=== PATIENT | male | born 1935 | race Caucasian/White ===

== ENCOUNTER 2017-05-09 12:56 | Inpatient (IN) ==
--- NOTE | 2017-05-09 13:49 | Emergency Department Note ---
Disposition Clinical Impression: Weakness, Falls frequently, Paresthesias with subjective weakness, Lightheadedness Disposition: Admitted As Inpatient Condition: Undetermined Referrals: NONE,PCP [Primary Care Provider] - Forms: ED Satisfaction Letter Time of Disposition: 16:17 Dizziness HPI - General Chief Complaint: ED Dizziness Stated Complaint: vision changes, memory loss, weakness Time Seen by Provider: 05/09/17 13:27 Source: patient, family Mode of arrival: ambulatory Limitations: no limitations Nursing Notes Reviewed: Yes Vital Signs Reviewed: Yes - History of Present Illness HPI Narrative: 81-year-old male arrives to [facility] emergency department with complaint of dizziness, recent falls, numbness of her left lower extremity. The patient states that over the past 4 days he has had episodes where he has felt dizzy and stumbled and fallen. The patient states that he felt very weak after when these episodes. He had no loss of consciousness after any fall. The patient states he feels as though his left lower extremity is numb and this is the reason was falling at times he feels as though he is dizzy and cannot stand up. The patient denied any chest pain, difficulty breathing, headache associated with it. The patient states he has intermittent episodes of blurred vision as well as dizziness as well. He denies any other complaints at this time is resting comfortably in the room. The patient states this all started roughly 4 days ago so we will not activate a stroke alert at this time. Pt Subjective Complaint: dizziness Onset (ago): day(s) (4) Timing: intermittent Description: off-balance, difficulty walking History of similar episodes: No History of trauma: No Severity: mild, moderate Improves with: nothing Worsens with: position Associated symptoms: Reports: weakness - Related Data Previous Rx's Medication Instructions Recorded Aspirin Enteric Coated [Aspirin EC] 81 mg PO DAILY #90 tablet. 06/26/15 Benzonatate [Tessalon] 200 mg PO BID PRN #30 capsule 06/26/15 Colesevelam HCl [Welchol] 1,875 mg PO BID #180 tablet 06/26/15 Insulin DETEMIR [Levemir] 14 unit SQ HS #5 [id number] 06/26/15 Insulin LISPRO [HumaLOG] 6 units SQ TIDWM #3 vial 06/26/15 Lisinopril [Zestril] 5 mg PO DAILY #90 tablet 06/26/15 Omeprazole [PriLOSEC] 20 mg PO DAILY #90 capsule 06/26/15 Acetaminophen w/Cod 300-30 mg 1 each PO Q6HR PRN #15 tablet 09/13/15 [Tylenol w/Codeine #3] Cyclobenzaprine [Flexeril] 10 mg PO BID PRN #15 tablet 10/15/15 HYDROcodone/Acet 5/325 mg [[place] 1 tab PO Q6H PRN #15 tab 10/15/15 5-325 mg] Allergies Allergy/AdvReac Type Severity Reaction Status Date / Time No Known Drug Allergies Allergy See Verified 02/05/15 15:12 Comments All systems ED: reviewed and negative except as stated. Constitutional: Reports: weakness. Denies: fever, chills ENT ED: Denies: congestion Cardiovascular: Denies: chest pain Respiratory: Denies: dyspnea Gastrointestinal: Denies: abdominal pain Genitourinary: Denies: urgency, dysuria Musculoskeletal: Denies: back pain, neck pain, arthralgia, myalgia Integumentary: Denies: rash Neurological: Reports: weakness, numbness, paresthesias, abnormal gait, vertigo. Denies: headache, confusion Past Medical History - Past Medical History Attestation: Yes The following information was validated with the patient. Source: patient Medical history: Reports: diabetes, hypertension, RA Surgical history: Reports: angioplasty/stent, cholecystectomy Psychiatric history: Reports: no psych history - Social History Smoking Status: Former smoker Smokeless Tobacco Status: No Alcohol use: Reports: occasionally Drug use: Reports: none Physical Exam HINTS exam concerning for normal finding in head jolt. - General Limitations: no limitations General appearance: alert, in no apparent distress - Head Head exam: atraumatic, normocephalic, normal inspection - Eye Eye exam: Present: normal appearance, PERRL, EOMI - ENT ENT exam: normal exam, normal oropharynx, mucous membranes moist - Neck Neck exam: Present: normal inspection, full ROM, trachea midline - Chest Chest inspection: Present: normal inspection, symmetric chest wall rise - Respiratory Respiratory exam: Present: normal lung sounds bilaterally - Cardiovascular Cardiovascular exam: Present: regular rate, normal rhythm, normal heart sounds - Abdominal Exam Abdominal exam: Present: soft, Non-Tender. Absent: tenderness, distention, guarding, rebound, rigidity - Extremities Exam Extremities exam: Present: normal inspection, full ROM. Absent: tenderness, pedal edema - Neurological Exam Neurological exam: Present: alert, oriented X3, CN II-XII intact - Expanded Neurological Exam Patient oriented to: Present: person, place, time Speech: Present: fluid speech Cranial nerves: EOM function (II, III, IV, ): Normal, facial sensation (V): Normal, facial palsy (VII): Normal Motor strength - LUE: 4/5 Motor strength - RUE: 4/5 Motor strength - LLE: 4/5 Motor strength - RLE: 4/5 Sensory exam upper extremity: light touch: Normal Sensory exam lower extremity: light touch: Abnormal Left Coma Scale Eye Opening: Spontaneous Coma Scale Motor Response: Obeys Commands Coma Scale Verbal Response: Oriented Coma Scale Total: 15 Course Vital Signs Temperature 97.9 F 05/09/17 13:19 Pulse Rate 99 05/09/17 13:19 Respiratory Rate 20 05/09/17 13:19 Blood Pressure 109/74 05/09/17 13:19 O2 Sat by Pulse Oximetry 95 05/09/17 13:19 Temperature 97.9 F 05/09/17 13:19 Pulse Rate 94 05/09/17 16:16 Respiratory Rate 18 05/09/17 16:16 Blood Pressure 116/80 05/09/17 16:16 O2 Sat by Pulse Oximetry 92 05/09/17 16:16 Oxygen Delivery Oxygen Delivery Room Air Dizziness - MDM Narrative Medical decision making narrative: Workup here in the emergency department demonstrates findings consistent with possible CVA. Head CT and neck CTA demonstrate no acute findings here today in the emergency department. With the patient's numerous falls and symptoms of right lower extremity numbness I am concerned about the patient going home at this time. We will admit the patient to the hospitalist for further care workup which will likely include MRI and Doppler. The patient will be admitted to the hospitalist service, accepted by Dr. Jorgensen. - Lab Data Lab results reviewed: Yes I reviewed the patient's lab results. Result diagrams: 05/09/17 13:58 05/09/17 13:58 Lab Results 05/09/17 05/09/17 05/09/17 Range/Units 13:58 13:58 13:58 WBC 9.0 (4.3-11.1) K/mcL RBC 4.33 (4.19-5.50) M/mcL Hgb 13.4 (12.9-16.9) g/dL Hct 39.6 (37.5-50.1) % MCV 91.5 (83.0-100.0) fL MCH 30.9 (28.0-33.3) pg MCHC 33.8 (31.6-35.5) g/dL RDW 13.3 (11.5-14.5) % Plt Count 167 (140-400) K/mcL MPV 11.3 (9.4-12.4) fL Immature Gran % 0.4 (0-4) % Seg Neutrophils % 70.8 % Lymphocytes % 16.3 % Monocytes % 10.7 % Eosinophils % 1.2 % Basophils % 0.6 % Neutrophils # 6.4 (1.6-8.9) K/mcL Lymphocytes # 1.5 (0.6-4.6) K/mcL Monocytes # 1.0 (0.0-1.3) K/mcL Eosinophils # 0.1 (0.0-0.6) K/mcL Basophils # 0.1 (0.0-0.2) K/mcL Immature Plt Fraction 8.6 H (1.1-6.1) % Sodium 134 L (136-145) mEq/L Potassium 4.5 (3.5-4.5) mEq/L Chloride 101 (98-109) mEq/L Carbon Dioxide 22 (19-29) mEq/L BUN 22 (8-26) mg/dL Creatinine 1.24 (0.72-1.25) mg/dL Est GFR ( Amer) > 60 (> 60) Est GFR (Non-Af Amer) 56 L (> 60) BUN/Creatinine Ratio 18 (6-26) Glucose 140 H (70-99) mg/dL Calculated Osmolality 284 (280-300) Calcium 9.7 (8.6-10.8) mg/dL Troponin I 0.02 (0-0.03) ng/mL Urine Color (Yellow) Urine Clarity (Clear) Urine pH (5.0-8.0) pH Units Ur Specific [place] (1.010-1.025) Urine Protein (Neg-Trace) mg/dL Urine Glucose (UA) (Normal) mg/dL Urine Ketones (Negative) mg/dL Urine Blood (Negative) Urine Nitrite (Negative) Urine Bilirubin (Negative) Urine Urobilinogen (Normal) mg/dL Ur Leukocyte Esterase (Negative) Urine Microscopic RBC (0-3) per hpf Urine Microscopic WBC (0-3) per hpf Ur Squamous Epith Cells (None-Few) per lpf Urine Bacteria (None-Few) per hpf Hyaline Casts (None-Few) per lpf Urine Mucus (Few) Ur Culture Indicated? (NO) 05/09/17 Range/Units 14:11 WBC (4.3-11.1) K/mcL RBC (4.19-5.50) M/mcL Hgb (12.9-16.9) g/dL Hct (37.5-50.1) % MCV (83.0-100.0) fL MCH (28.0-33.3) pg MCHC (31.6-35.5) g/dL RDW (11.5-14.5) % Plt Count (140-400) K/mcL MPV (9.4-12.4) fL Immature Gran % (0-4) % Seg Neutrophils % % Lymphocytes % % Monocytes % % Eosinophils % % Basophils % % Neutrophils # (1.6-8.9) K/mcL Lymphocytes # (0.6-4.6) K/mcL Monocytes # (0.0-1.3) K/mcL Eosinophils # (0.0-0.6) K/mcL Basophils # (0.0-0.2) K/mcL Immature Plt Fraction (1.1-6.1) % Sodium (136-145) mEq/L Potassium (3.5-4.5) mEq/L Chloride (98-109) mEq/L Carbon Dioxide (19-29) mEq/L BUN (8-26) mg/dL Creatinine (0.72-1.25) mg/dL Est GFR ( Amer) (> 60) Est GFR (Non-Af Amer) (> 60) BUN/Creatinine Ratio (6-26) Glucose (70-99) mg/dL Calculated Osmolality (280-300) Calcium (8.6-10.8) mg/dL Troponin I (0-0.03) ng/mL Urine Color Yellow (Yellow) Urine Clarity Clear (Clear) Urine pH 7.0 (5.0-8.0) pH Units Ur Specific [place] 1.014 (1.010-1.025) Urine Protein Trace (Neg-Trace) mg/dL Urine Glucose (UA) Normal (Normal) mg/dL Urine Ketones Negative (Negative) mg/dL Urine Blood Negative (Negative) Urine Nitrite Negative (Negative) Urine Bilirubin Negative (Negative) Urine Urobilinogen Normal (Normal) mg/dL Ur Leukocyte Esterase Negative (Negative) Urine Microscopic RBC 0-3 (0-3) per hpf Urine Microscopic WBC 0-3 (0-3) per hpf Ur Squamous Epith Cells Few (None-Few) per lpf Urine Bacteria Few (None-Few) per hpf Hyaline Casts None Seen (None-Few) per lpf Urine Mucus Few (Few) Ur Culture Indicated? NO (NO) - Radiology Data Radiology results reviewed: Yes I reviewed the patient's radiology results. - EKG Data EKG attestation: Yes I reviewed and interpreted this EKG. EKG results narrative: Heart rate 95 bpm. SD interval 167 ms. QTc 381 ms. Normal sinus rhythm. NO Elevation or ST depression noted. EKG similar to past EKG at 16. No acute changes noted. Attestation Statement - Attestation Attestation: I examined this patient and my medical decision-making was reviewed with the Resident Physician, Dr. Patricia. I agree with the documented findings, disposition and treatment plan as described except to the extent set forth below. Patient is an 81-year-old white male who presents to the emergency department with a 3 to four-week history of transient intermittent neurologic complaints. Patient states that he has been experiencing gradually worsening generalized weakness over that timeframe but also having episodes where he will develop left lower extremity paresthesias and subjective weakness becomes lightheaded and is told by family members that he has periods of stumbling with a can of hurry to his side to support him from falling. Patient has experienced a number of falls over the past 3-4 weeks but denies any head injuries, no loss of consciousness, denies taking anticoagulants or blood thinners, and no injuries related to the fall. Patient at this time denies any current dizziness lightheadedness symptoms of vertigo. He denies any headaches or visual changes, and currently denies any focal weakness or numbness. Patient's biggest concern is the gradual generalized weakness that he has noticed which is progressing over the past month. He denies any fevers or chills, no cough sore throat or upper respiratory symptoms, no chest pain pressure or heaviness, no shortness of breath or diaphoresis. He denies any urinary symptoms or flank pain and no abdominal pain. I agree with patient's physical exam findings as documented. Vital signs are stable on arrival. Patient is in no acute distress. Patient's EKG is unremarkable for any acute ischemia. Patient underwent chest x -ray imaging as well as CTA of head and neck. All imaging is unremarkable. Patient's neurologic exam is remained stable during his ED course as well as his vital signs. Symptoms concerning for TIA versus CVA like symptoms although nonacute. Feel patient would benefit from hospitalization and additional workup in this regard with neurologic consult. Patient will be admitted to the hospitalist service for further evaluation.
[2017-05-09 14:13] LABS: Basophils # 0.1 K/mcL (0.0-0.2); Basophils % 0.6 %; Eosinophils # 0.1 K/mcL (0.0-0.6); Eosinophils % 1.2 %; Hematocrit 39.6 % (37.5-50.1); Hemoglobin 13.4 g/dL (12.9-16.9); Immature Granulocytes % 0.4 % (0-4); Immature Platelets 8.6 % (1.1-6.1); Lymphocytes # 1.5 K/mcL (0.6-4.6); Lymphocytes % 16.3 %; Mean Corpuscular HGB Conc 33.8 g/dL (31.6-35.5); Mean Corpuscular Hemoglobin 30.9 pg (28.0-33.3); Mean Corpuscular Volume 91.5 fL (83.0-100.0); Mean Platelet Volume 11.3 fL (9.4-12.4); Monocytes % 10.7 %; Neutrophils # 6.4 K/mcL (1.6-8.9); Platelet Count 167 K/mcL (140-400); Red Blood Count 4.33 M/mcL (4.19-5.50); Red Cell Distribution Width 13.3 % (11.5-14.5); Segmented Neutrophils % 70.8 %
[2017-05-09 14:25] LABS: Bilirubin,Urine Negative (Negative); Blood,Urine Negative (Negative); Clarity,Urine Clear (Clear); Color,Urine Yellow (Yellow); Glucose,Urine (UA) Normal (Normal); Ketones,Urine Negative (Negative); Leukocyte Esterase,Urine Negative (Negative); Nitrite,Urine Negative (Negative); Protein,Urine Trace mg/dL (Neg-Trace); Specific Gravity,Urine 1.014 (1.010-1.025); Urobilinogen,Urine Normal (Normal)
[2017-05-09 14:27] LABS: Hyaline Casts,Urine None Seen per lpf (None-Few); RBC,Urine 0-3 per hpf (0-3); Squamous Epithelial Cell,Urine Few per lpf (None-Few); WBC,Urine 0-3 per hpf (0-3)
[2017-05-09 14:28] LABS: BUN/Creatinine Ratio 18 (6-26); Blood Urea Nitrogen 22 mg/dL (8-26); Calcium 9.7 mg/dL (8.6-10.8); Carbon Dioxide 22 mEq/L (19-29); Chloride 101 mEq/L (98-109); Glucose 140 mg/dL (70-99); Osmolality,Calculated 284 (280-300); Potassium 4.5 mEq/L (3.5-4.5); Sodium 134 mEq/L (136-145); eGFR For African Americans > 60 (> 60); eGFR For Non-African Americans 56 (> 60)
[2017-05-09 14:49] LABS: Mucus,Urine Few (Few)
[2017-05-09 14:50] LABS: Bacteria,Urine Few per hpf (None-Few)
[2017-05-09] MEDS ORDERED: Dextrose Gel 15 GM PO PRN ×4 (16:59→17:05)
[2017-05-09] MEDS ORDERED: D5% in Water 1,000 ML IVC PRN ×2 (16:59→17:05)
[2017-05-09] MEDS ORDERED: *HR* Dextrose 50 % in Water (Syg) 50 ML SYRINGE IVP PRN ×2 (16:59→17:05)
[2017-05-09] MEDS ORDERED: Naloxone 0.4 MG/ML INJ IVP PRN (16:59)
[2017-05-09] MEDS ORDERED: *HR* Metoprolol 5 MG/5 ML VIAL IVP PRN (17:09)
--- NOTE | 2017-05-09 17:19 | Internal Med History&Physical ---
<Anjum Tsai - Last Filed: 05/09/17 17:16> Date of Encounter: 05/09/17 Time of Encounter: 17:16 Assessment and Plan (1) CVA (cerebral vascular accident) Current visit: Yes Status: Suspected Right-sided weakness, reported falls on Wednesday hitting his head, dizziness, vision changes prior to follow, left lower extremity numbness, new shuffling gait Reporting new confusion. Upon my assessment the patient appears to have some expressive aphasia with word searching, and sensory deficits in the right upper and right lower extremity as well as right side of face. Continues to have weakness and He is having difficulty sitting upright in bed and continues to lean to the right. Otherwise no additional deficits. Heart is RRR, S1, S2 with no murmurs rubs or gallops. No prior history of CVA/TIA. Due to clinical presentation and ABCD score of 6 I highly suspect the patient has had a CVA, he will be admitted as inpatient for further workup and evaluation Consult neurology-spoke with Dr. Cristina who will see the patient tomorrow He agrees with the plan to start daily aspirin, simvastatin 80 mg, Plavix Additionally, he agrees with permissive hypertension for SBP up to 180 Metoprolol IV push every 6 hours when necessary for sustained SBP greater than 180 CTA of head and neck unremarkable-MRI in the morning Echocardiogram to rule out cardioembolic etiology PT/OT to assess functional capacity, health and social care teacher for potential rehabilitation placement, speech consult to assess for swallowing difficulty Remain nothing by mouth until speech eval CBC, BMP in the morning Continuous telemetry, continuous O2 monitoring Remain on bedrest until PT OT eval Qualifiers: CVA mechanism: unspecified Qualified Code(s): I63.9 - Cerebral infarction, unspecified (2) Weakness Current visit: Yes Status: Acute Continues to have right-sided weakness, highly suspect he has had a CVA, see plan above. (3) HTN (hypertension) Current visit: Yes Status: Acute History of hypertension. BP stable at this time. Allow for permissive hypertension following suspected stroke. Metoprolol every 6 hours IV push when necessary for sustained STP greater than 180 Qualifiers: Hypertension type: essential hypertension Qualified Code(s): I10 - Essential (primary) hypertension (4) Falls frequently Current visit: Yes Status: Acute History of frequent falls. As well and twice on Wednesday. PTOT to evaluate functional capacity and assess deficits. micrographics services supervisor on consult for potential rehabilitation placement (5) DVT prophylaxis Current visit: No Status: Acute Heparin 5000 units subcutaneous twice a day Internal Medicine - H&P: HPI Chief complaint: Weakness, frequent falls, vision changes, right-sided paresthesia Admitted From: Home Plans for Post Hospital Care: Home History of present illness: Mr. Hernandez is a 81 year old male with PMH of diabetes, HTN, rheumatoid arthritis. Presents today with weakness, vision changes, right-sided paresthesias and fslls which began on Wednesday. He reports that when he fell and struck the right side of his head. He is not on any blood thinners. No prior history of CVA or CAD. Denies any chest pain, shortness of breath, fevers, chills, abdominal pain, syncope, dysuria, flank pain. Only admitting to blurred vision and dizziness as well as some numbness and tingling in the left lower extremity. Doppler bedside and states that patient appears to be more confused and having difficulty with word finding. She reports that throughout this time he has not had any slurred speech or facial droop. She reports that he has difficulty sitting in upright position without leaning to the right side. CT angiogram of head and neck completed in ED and found to be negative. CBC, BMP, UA unremarkable. Due to continued right-sided neuro deficits high probability of CVA patient is being admitted for further workup and evaluation Past Med Surg Social Fam HX - Past Medical History Medical history: diabetes, hypertension, RA Psychiatric history: no psych history - Past Surgical History Surgical History: angioplasty/stent, cholecystectomy - Social History Smoking Status: Former smoker Smokeless Tobacco Status: No Alcohol use: occasionally Drug use: none - Family History Father Living Status: Hx Family Neuromuscular Disorders: Yes (strokes) Internal Medicine - H&P: Meds Aspirin 81 mg PO DAILY 05/09/17 [History] Insulin Glargine,Hum.rec.anlog [Lantus Solostar] 80 unit SQ HS 05/09/17 [History ] Insulin LISPRO [HumaLOG] 10 units SQ TIDWM 05/09/17 [History] Omeprazole [PriLOSEC] 40 mg PO DAILY 05/09/17 [History] predniSONE [PredniSONE] 10 mg PO DAILY 05/09/17 [History] 3 Allergy/AdvReac Type Severity Reaction Status Date / Time No Known Drug Allergies Allergy See Verified 05/09/17 17:01 Comments All Systems PM: A 10-system review of systems was performed and is negative for pertinent findings except as documented above in the HPI. - Constitutional Constitutional: fatigue, falls, weakness (Right-sided), no chills, no fever(s) - EENT Eyes: blurry vision, change in vision - Cardiovascular Cardiovascular ROS IM: no chest pain, no diaphoresis, no dyspnea, no edema, no irregular heart rhythm, no lightheadedness, no orthopnea, no palpitations, no syncope - Respiratory Respiratory: no cough, no dyspnea, no wheezing, no pain on inspiration, no chest congestion, no excessive phlegm production, no pain with cough - Gastrointestinal Gastrointestinal: no abdominal pain, no diarrhea, no hematemesis, no hematochezia, no melena, no nausea, no vomiting - Musculoskeletal Musculoskeletal ROS IM: no numbness, no tingling - Integumentary Integumentary IM: no rash, no unusual bruising - Neurological Neurological ROS: abnormal gait (Reporting new shuffling gait), behavioral changes, confusion (Confusion), disequilibrium, frequent falls, numbness (LLE), tingling (LLE), weakness, no abnormal speech, no focal weakness, no headache(s) - Constitutional Vitals: Temp Pulse Resp BP Pulse Ox 97.9 F 93 18 114/81 94 05/09/17 13:19 05/09/17 16:51 05/09/17 16:51 05/09/17 16:51 05/09/17 16:51 General appearance: Present: A&O X 1, mild distress Exam: 81-year-old male appears to be stated age, in mild distress with some expressive aphasia and word searching. No facial droop, slurred speech noted - Head Head exam: Present: atraumatic, normocephalic - Eye Eye exam: Present: EOMI, PERRL, conjuntiva pink, sclera anicteric. Absent: periorbital swelling, periorbital tenderness Pupils: Present: normal accommodation, PERRL. Absent: fixed, irregular, unequal - Neck Neck exam general surgery: Present: full ROM, normal inspection, supple, trachea midline. Absent: lymphadenopathy, tenderness, nuchal rigidity - Respiratory Respiratory exam: Present: CTAB. Absent: accessory muscle use, rales, rhonchi, wheezes - Cardiovascular Cardiovascular exam: Present: RRR, +S1, +S2. Absent: diastolic murmur, gallop, rubs, systolic murmur - Extremities Exam Extremities exam: Present: normal capillary refill, warm, radial pulses palpable and symmetrical. Absent: calf tenderness, cyanotic, joint swelling, pedal edema, tenderness - Expanded Upper Extremities Exam Forearm wrist exam: Present: swelling (No joint crepitus noted), tenderness. Absent: crepitus, dislocation, ecchymosis, erythema, full ROM (Limited R [place]) Neuro motor exam: Absent: wrist extension intact - Neurological Exam Neurological exam: Present: alert, altered (Confused), speech deficit (Word searching, no slurring). Absent: normal gait (Unable to assess), no focal deficits, strengths equal and symetr throughout, pronater drift, facial droop - Expanded Neurological Exam Neurological exam expanded: Present: expressive aphasia. Absent: receptive aphasia Patient oriented to: Present: person. Absent: place, time Speech: Present: expressive aphasia. Absent: garbled, slurred Cranial Nerves: EOM's intact PM: Normal, nystagmus PM: Normal, tongue deviation PM: Normal Cerebellar function: finger to nose: Abnormal Left, Abnormal Right (Difficulty performing), heel to vazquez: Abnormal Left, Abnormal Right (Difficulty performing) , Romberg: Normal Upper motor neuron: Babinski sign: Normal, Gael neglect: Normal, pronator drift : Normal, sensory extinction: Abnormal Right Sensory exam: lower extremity light touch: Abnormal Left, Abnormal Right, upper extremity light touch: Abnormal Left, Abnormal Right Neuro motor strength exam: LUE: 4, RUE: 4, LLE: 4, RLE: 4 Coma Scale Eye Opening: Spontaneous Coma Scale Motor Response: Obeys Commands Coma Scale Verbal Response: Confused Coma Scale Total: 14 - Skin Skin exam: Present: dry, intact Internal Med - H&P Results - Labs CBC & Chem 7: 05/09/17 13:58 05/09/17 13:58 - EKG Data -: EKG Interpreted by Myself EKG shows normal: sinus rhythm Rate: normal - EKG Data Prior EKG available for review: yes When compared to previous EKG: there is no significant change Interpretation IM: normal EKG - Diagnostic Studies Chest x-ray Status: image reviewed by me Additional comments: No acute pulmonary abnormalities CT scan - head Status: image reviewed by me Additional comments: CT angiogram and neck -No focal occlusion or high-grade stenosis involving the intracranial vasculature, or cervical vasculature. Mild amount of atherosclerotic disease involving the cervical and intracranial vasculature, without flow-limiting stenosis. No CT evidence of acute intracranial hemorrhage. No CT evidence of acute cortical infarct. 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 Nonspecific ground-glass opacities within bilateral lung apices, with interlobular septal thickening. Findings may represent component of pulmonary interstitial edema. This can be correlated with dedicated chest radiograph. <Neptali Jorgensen - Last Filed: 05/09/17 18:19> Date of Encounter: 05/09/17 Internal Medicine - H&P: HPI History of present illness: Mr. Hernandez is a 81 year old male All Systems PM: A 10-system review of systems was performed and is negative for pertinent findings except as documented above in the HPI. - Constitutional Vitals: Temp Pulse Resp BP Pulse Ox 97.9 F 93 18 114/81 94 05/09/17 13:19 05/09/17 16:51 05/09/17 16:51 05/09/17 16:51 05/09/17 16:51 Internal Med - H&P Results - Labs CBC & Chem 7: 05/09/17 13:58 05/09/17 13:58 - Attending Attestation I examined this patient and my medical decision-making was reviewed with the Resident Physician. I agree with the documented findings, disposition and treatment plan as described except to the extent set forth below.
[2017-05-09] MEDS: Insulin LISPRO 300 UNITS/3 ML VIAL SQ SCH ×2 (18:13→23:26)
[2017-05-09] MEDS: *HR* Heparin 5,000 UNIT/ML VIAL SQ SCH (18:14)
[2017-05-09 18:58] LABS: Hemoglobin A1C 7.9 %
[2017-05-09] MEDS ORDERED: *HR* OxyCODONE/APAP 5/325 TABLET PO PRN (21:08)
[2017-05-10 00:41] LABS: Basophils # 0.1 K/mcL (0.0-0.2); Basophils % 0.7 %; Eosinophils # 0.1 K/mcL (0.0-0.6); Eosinophils % 1.5 %; Hematocrit 36.3 % (37.5-50.1); Hemoglobin 12.5 g/dL (12.9-16.9); Immature Granulocytes % 0.5 % (0-4); Lymphocytes # 1.9 K/mcL (0.6-4.6); Lymphocytes % 21.5 %; Mean Corpuscular HGB Conc 34.4 g/dL (31.6-35.5); Mean Corpuscular Hemoglobin 31.3 pg (28.0-33.3); Mean Platelet Volume 11.4 fL (9.4-12.4); Monocytes # 1.1 K/mcL (0.0-1.3); Monocytes % 12.6 %; Neutrophils # 5.5 K/mcL (1.6-8.9); Platelet Count 161 K/mcL (140-400); Red Blood Count 3.99 M/mcL (4.19-5.50); Red Cell Distribution Width 13.3 % (11.5-14.5); Segmented Neutrophils % 63.2 %
[2017-05-10 00:55] LABS: BUN/Creatinine Ratio 17 (6-26); Blood Urea Nitrogen 19 mg/dL (8-26); Calcium 9.4 mg/dL (8.6-10.8); Carbon Dioxide 22 mEq/L (19-29); Chloride 101 mEq/L (98-109); Chol/HDL Ratio 5.6 (0-4.9); Cholesterol 195 mg/dL (< 200); Glucose 119 mg/dL (70-99); HDL Cholesterol 35 mg/dL (40-59); LDL Cholesterol,Calculated 135 mg/dL (0-99); Osmolality,Calculated 281 (280-300); Potassium 4.1 mEq/L (3.5-4.5); Sodium 134 mEq/L (136-145); Triglycerides 126 mg/dL (< 150); eGFR For African Americans > 60 (> 60); eGFR For Non-African Americans > 60 (> 60)
[2017-05-10] MEDS: *HR* Heparin 5,000 UNIT/ML VIAL SQ SCH (04:50)
[2017-05-10] MEDS: Insulin LISPRO 300 UNITS/3 ML VIAL SQ SCH ×2 (05:07→13:16)
[2017-05-10] MEDS ORDERED: Aspirin 81 MG TAB.CHEW PO SCH (09:00)
[2017-05-10] MEDS ORDERED: predniSONE 10 MG TABLET PO SCH (09:00)
[2017-05-10 15:58] VITALS: BP 124/92
--- NOTE | 2017-05-10 16:15 | Internal Med Progress Note ---
Date of Encounter: 05/10/17 Time of Encounter: 10:50 - Assessment and plan (1) Paresthesias with subjective weakness Current Visit: Yes Status: Acute Assessment and plan: Patient denies any numbness today but does have small joint weakness which appears to relate it his rheumatoid arthritis rather than new stroke. He does have generalized weakness. Physical therapy has been concentrated. We will await further evaluation. (2) Rheumatoid arthritis Current Visit: Yes Status: Chronic Assessment and plan: Patient on prednisone 10 mg oral daily. He will need to follow up with his vocational evaluator after discharge for further management. This could also be concrete into his weakness and inability to perform fine motor tasks with his hands due to joint stiffness. PT OT has been consulted. Qualifiers: Rheumatoid arthritis location: multiple sites Rheumatoid factor presence: unspecified presence Qualified Code(s): M06.9 - Rheumatoid arthritis, unspecified (3) Diabetes mellitus Current Visit: Yes Status: Chronic Assessment and plan: Blood sugars elevated this morning. Possibly due to steroid use. Will add low- dose of long-acting insulin in addition to sliding scale coverage. Qualifiers: Diabetes mellitus type: type 2 Diabetes mellitus complication status: with hyperglycemia Diabetes mellitus retirement insulin use: with remote computer terminal operator use Qualified Code(s): E11.65 - Type 2 diabetes mellitus with hyperglycemia; Z79.4 - skilled nursing (current) use of insulin; Z79.4 - skilled nursing (current) use of insulin ; Z79.4 - skilled nursing (current) use of insulin; Z79.4 - skilled nursing (current) use of insulin (4) CVA (cerebral vascular accident) Current Visit: Yes Status: Ruled-out Assessment and plan: MRI of the brain shows no acute infarct. 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 Neurology has been consulted. Patient is currently receiving aspirin and statin. His LDL levels are elevated. Will continue statin. Qualifiers: CVA mechanism: unspecified Qualified Code(s): I63.9 - Cerebral infarction, unspecified - Subjective Interval history: Patient with history of rheumatoid arthritis hospitalized here for suspected TIA /stroke after presenting with weakness vision changes and right-sided paresthesias along with falls. Patient is awake and alert. Denies any numbness or weakness in his upper extremities but has trouble with fine motor movement involving both of his hands which he has had for some time related to his rheumatoid arthritis. Patient states that he has been placed on a newer drug for his rheumatoid arthritis which is been taking recently. He does not recollect the name of it. Denies any speech difficulty. No trouble swallowing. - Constitutional Vitals: Temp Pulse Resp BP Pulse Ox 97.4 F L 93 16 124/92 98 05/10/17 15:56 05/10/17 15:56 05/10/17 15:56 05/10/17 15:56 05/10/17 15:56 General appearance: Present: cooperative, A&O X 1, no acute distress, answers questions appropriately - Respiratory Respiratory exam: Present: CTAB. Absent: accessory muscle use, rales, rhonchi, wheezes - Cardiovascular Cardiovascular exam: Present: RRR, +S1, +S2. Absent: diastolic murmur, gallop, rubs, systolic murmur - GI/Abdominal GI/Abdominal exam: Present: normal bowel sounds, soft, no peritoneal signs. Absent: distended, tenderness - Extremities Exam Extremities exam: Present: warm, radial pulses palpable and symmetrical. Absent : calf tenderness, cyanotic, pedal edema Additional comments: Synovitis and rheumatoid arthritis changes noted in both wrists and finger joints - Neurological Exam Neurological exam: Present: alert, CN II-XII intact, oriented X3, no focal deficits, strengths equal and symetr throughout. Absent: facial droop, speech deficit Internal Medicine: Result - Labs CBC & Chem 7: 05/10/17 00:33 05/10/17 00:33 Labs: Short CBC 05/10/17 Range/Units 00:33 WBC 8.7 (4.3-11.1) K/mcL Hgb 12.5 L (12.9-16.9) g/dL Hct 36.3 L (37.5-50.1) % Plt Count 161 (140-400) K/mcL Neutrophils # 5.5 (1.6-8.9) K/mcL BMP 05/10/17 00:33 Sodium 134 L Potassium 4.1 Chloride 101 Carbon Dioxide 22 BUN 19 Creatinine 1.14 Glucose 119 H Calcium 9.4 Cardiac Enzymes 05/09/17 05/10/17 Range/Units 18:26 00:33 Troponin I 0.02 0.02 (0-0.03) ng/mL - Impressions Impressions Echocardiogram 05/10/17 16:54 Impressions: LVEF 55-60%. Normal LV chamber size and function. Mild concentric left ventricular hypertrophy. Atypical septal motion consistent with bundle branch block. Mild left ventricular diastolic dysfunction. Normal right ventricular structure and function. No evidence of a PFO with agitated saline contrast. No evidence of pulmonary hypertension. Left Ventricular Wall Motion: Rest Echo Findings All wall segments showed normal motion. Findings: Study Quality * Technically adequate exam. ECG Findings * Normal sinus rhythm, bundle branch block. Left Ventricle * LVEF 55-60%. * Normal LV chamber size and function. * Mild concentric left ventricular hypertrophy. * Atypical septal motion consistent with bundle branch block. * Mild left ventricular diastolic dysfunction. Right Ventricle * Normal right ventricular structure and function. Left Atrium * Normal left atrial size. Right Atrium * Normal right atrial size. Interatrial Septum * No evidence of a PFO with agitated saline contrast. Aortic Valve * Trileaflet aortic valve. * Mildly sclerotic aortic valve leaflets. * No aortic regurgitation. * No aortic stenosis. Mitral Valve * Mild mitral annular calcification * No mitral regurgitation. * No mitral stenosis. Tricuspid Valve * Normal tricuspid valve structure and function. * Trace tricuspid regurgitation. * No evidence of pulmonary hypertension. Pulmonic Valve * Normal pulmonic valve structure and function. * No pulmonic regurgitation. Aorta * Normally sized aortic root. Pericardium * The pericardium appears normal. IVC * Normal IVC dimensions and inspiratory collapse. Pulmonary Artery * Normal visualized portions of the main pulmonary artery. Consult Discharge Plan - Plan Referrals: NONE,PCP [Primary Care Provider] -
[2017-05-10] MEDS ORDERED: Insulin LISPRO 300 UNITS/3 ML VIAL SQ SCH ×2 (16:30→21:00)
[2017-05-10] MEDS ORDERED: Insulin DETEMIR 100 UNIT/ML X5UNITS SQ SCH (21:00)
--- NOTE | 2017-05-11 10:14 | Electrocardiograph Report ---
[place] [id number] Test Date: 2017-05-09 Pat Name: oClin Hernandez Department: 104 Room: 2NE24 Gender: M Road Grader Operator: EKP : [id number] Requested By: Nasim Patricia Order Number: [id number] Reading MD: Harrison Fleming DO Measurements Intervals [place] Rate: 95 P: 48 HI: 167 QRS: -1 QRSD: 86 T: -7 QT: 329 QTc: 381 Interpretive Statements SINUS RHYTHM WITH OCCASIONAL SUPRAVENTRICULAR PREMATURE COMPLEXES NONSPECIFIC ST-T CHANGES Electronically Signed On 05-11-2017 10:13:03 EST by Harrison Fleming DO
== END 2017-05-10 17:30 | disposition home or self-care (01) | DRG 92 ==
LOC: EMEROO 12:56 → 2NENU 12:56
PROVIDERS: ADMIT Nurse Practitioner; ATTEND Internal Medicine

== ENCOUNTER 2017-07-12 11:47 | Observation (INO) ==
--- NOTE | 2017-07-12 12:19 | Emergency Department Note ---
Disposition Clinical Impression: Gait abnormality, Weakness generalized, Influenza B, Frequent falls Nasal fracture Qualifiers: Encounter type: initial encounter Fracture type: closed Qualified Code(s): S02.2XXA - Fracture of nasal bones, initial encounter for closed fracture Disposition: Admitted As Inpatient Condition: Fair Time of Disposition: 14:57 Fall HPI - General Chief Complaint: ED Weakness Stated Complaint: DIZZINESS, WEAK Time Seen by Provider: 07/12/17 11:53 Source: patient, family, EMS Mode of arrival: EMS Limitations: no limitations, age Nursing Notes Reviewed: Yes Vital Signs Reviewed: Yes - History of Present Illness HPI Narrative: 81-year-old male history of hypertension, hyperlipidemia, CAD status post stents , presents with frequent falls over the last several weeks, increased gait instability and difficulty walking. Has fallen twice the last 3 days. He is taking aspirin and Plavix, he states he has been more confused somewhat as well , he does normally take care of his demented , he has his daughters checking on them know home health, he has some bruising to his face and complains of nose pain, mild headache and neck pain and also pain in his upper back, rates his pain 5 out of 10 aching in quality. Denies chest pain, shortness of breath abdominal pain, says some difficulty walking but denies any weakness unilaterally no facial droop or slurred speech. Pt Subjective Complaint: fall Onset (ago): hour(s) Fall From: standing Fall Witnessed: no Place Fall Occurred: home Loss of Consciousness: unsure Prolonged Down Time?: unclear Symptoms Prior to Fall: lightheadedness Context: tripped/slipped Severity: mild Quality: aching Associated symptoms (after fall): Reports: headache, neck pain, weakness, unable to walk. Denies: numbness, chest pain - Related Data Home Medications Medication Instructions Recorded Confirmed Insulin Glargine,Hum.rec.anlog 30 unit SQ HS 05/09/17 07/12/17 [Lantus Solostar] Insulin LISPRO [HumaLOG] 10 units SQ TIDWM 05/09/17 07/12/17 Omeprazole [PriLOSEC] 40 mg PO DAILY 05/09/17 07/12/17 predniSONE [PredniSONE] 10 mg PO DAILY 05/09/17 07/12/17 levoFLOXacin [Levaquin] 500 mg PO DAILY 07/12/17 07/12/17 Allergies Allergy/AdvReac Type Severity Reaction Status Date / Time No Known Drug Allergies Allergy See Verified 07/12/17 14:12 Comments All systems ED: reviewed and negative except as stated. Review of Systems: As Per HPI Constitutional: Reports: weakness. Denies: fever, chills Eyes: Denies: eye pain ENT ED: Denies: ear pain, throat pain Cardiovascular: Denies: chest pain, palpitations Respiratory: Denies: cough, dyspnea Gastrointestinal: Denies: abdominal pain Genitourinary: Denies: urgency Musculoskeletal: Reports: as per HPI, neck pain. Denies: back pain Neurological: Reports: as per HPI, headache, weakness, abnormal gait. Denies: numbness, paresthesias Fall PMH - Past Medical History Medical history: Reports: diabetes, hypertension, RA Surgical history: Reports: angioplasty/stent, cholecystectomy Psychiatric history: Reports: no psych history - Social History Smoking Status: Former smoker Alcohol use: Reports: occasionally Drug use: Reports: none Physical Exam Primary Survery: A: patent B: BS equal bilat C: +2 radial and posterial tibialis pulses D: no gross disability, neuro intact E: No environmental/exposures Seconday: Constitutional: Somewhat confused 81-year-old male alert and oriented 3, vital signs stable HEENT: Raccoon eyes and facial bruising ecchymosis and nasal deformity sclera anicteric, PERRLA bilaterally, normal external ears bilaterally, nasal septum deviated to the left. Neck: normal inspection, neck is supple, midline tenderness T4 through C5 cervical tenderness, C placed at bedside, trachea midline Resp: normal chest inspection, CTA bilaterally, no resp distress CV: RRR, no m/g/r GI: normal inspection, Soft, NTND, BS present, no r/r/g, no seatbelt sign FAST EXAM: Negative for fluid in the splenorenal, no fluid in Morison's pouch, no pericardial effusions, neg pneumothorax bilaterally, fluid in the pelvic gutter Back: normal inspection, no tenderness to palpation, no palpable stepoff or deformity Neuro: A&O3, GCS 15 CN II-XII grossly intact bilaterally, no gross motor or sensory deficits bilaterally, some gait ataxia, difficulty performing heel to vazquez, unable to ambulate MSK: normal inspection, no deformities, bilateral UE and LE with normal ROM Skin: No rashes, skin warm, dry, intact - General Limitations: no limitations General appearance: alert, in no apparent distress Course Course Narrative: 81-year-old male with frequent falls, gait instability, concerning for possible cerebellar lesion, head bleed given that he has aspirin and Plavix, 70 is a deformity crossable close nasal fracture, CT scan of head and max face cervical spine also his family states he has had some cough and congestion lately more confusion will get urinalysis and CBC BMP troponin, chest x-ray pelvis xray - Reevaluation(s) Reevaluation #1: Reevaluation the patient was positive for influenza B, he Rachel gait abnormalities unable to ambulate him, I cleared his C-spine, he has evidence of a nasal fracture, the plan is for admission to hospital service for PT OT evaluation possible MRI to evaluate for cerebellar pathology, admitted to the hospitalist service Dr. Francois Time: 14:35 Vital Signs Temperature 98.0 F 07/12/17 11:50 Pulse Rate 95 07/12/17 11:50 Respiratory Rate 16 07/12/17 11:50 Blood Pressure 104/89 07/12/17 11:50 O2 Sat by Pulse Oximetry 96 07/12/17 11:50 Temperature 98.8 F 07/12/17 17:09 Pulse Rate 91 07/12/17 17:09 Respiratory Rate 20 07/12/17 17:09 Blood Pressure 100/72 07/12/17 17:09 O2 Sat by Pulse Oximetry 94 07/12/17 17:09 Oxygen Delivery Oxygen Delivery Nasal Cannula Fall - Differential Diagnosis Likely: syncope, traumatic injury, arrhythmia - Medical Records Medical records reviewed: Yes I reviewed the patient's medical records. - Lab Data Lab results reviewed: Yes I reviewed the patient's lab results. Result diagrams: 07/12/17 12:19 07/12/17 12:19 Lab Results 07/12/17 07/12/17 07/12/17 Range/Units 11:53 12:19 12:19 WBC 5.6 (4.3-11.1) K/mcL RBC 4.13 L (4.19-5.50) M/mcL Hgb 12.9 (12.9-16.9) g/dL Hct 37.9 (37.5-50.1) % MCV 91.8 (83.0-100.0) fL MCH 31.2 (28.0-33.3) pg MCHC 34.0 (31.6-35.5) g/dL RDW 14.9 H (11.5-14.5) % Plt Count 106 L (140-400) K/mcL MPV 11.9 (9.4-12.4) fL Immature Gran % 0.7 (0-4) % Seg Neutrophils % 55.7 % Lymphocytes % 28.5 % Monocytes % 14.0 % Eosinophils % 0.7 % Basophils % 0.4 % Neutrophils # 3.1 (1.6-8.9) K/mcL Lymphocytes # 1.6 (0.6-4.6) K/mcL Monocytes # 0.8 (0.0-1.3) K/mcL Eosinophils # 0.0 (0.0-0.6) K/mcL Basophils # 0.0 (0.0-0.2) K/mcL Sodium 132 L (136-145) mEq/L Potassium 3.7 (3.5-5.1) mEq/L Chloride 99 (98-107) mEq/L Carbon Dioxide 22 L (23-29) mEq/L BUN 25 H (8-23) mg/dL Creatinine 1.24 (0.70-1.30) mg/dL Est GFR ( Amer) > 60 (> 60) Est GFR (Non-Af Amer) 56 L (> 60) BUN/Creatinine Ratio 20 (6-26) Glucose 120 H (70-105) mg/dL POC Glucose 137 H (58-89) Calculated Osmolality 280 (280-300) Lactic Acid (0.5-2.2) mmol/L Calcium 8.3 L (8.6-10.3) mg/dL Total Bilirubin 0.7 (0.3-1.0) mg/dL AST 62 H (13-39) Units/L ALT 38 (7-52) Units/L Alkaline Phosphatase 109 H (34-104) Units/L Creatine Kinase 74 (30-223) Units/L Troponin I (< 0.04) ng/mL Serum Total Protein 6.1 L (6.4-8.9) g/dL Albumin 3.2 L (3.5-5.7) g/dL Globulin 2.9 (2.4-3.5) g/dL Albumin/Globulin Ratio 1.1 (1.1-2.2) Urine Color (Yellow) Urine Clarity (Clear) Urine pH (5.0-8.0) pH Units Ur Specific [place] (1.010-1.025) Urine Protein (Neg-Trace) mg/dL Urine Glucose (UA) (Normal) mg/dL Urine Ketones (Negative) mg/dL Urine Blood (Negative) Urine Nitrite (Negative) Urine Bilirubin (Negative) Urine Urobilinogen (Normal) mg/dL Ur Leukocyte Esterase (Negative) Urine Microscopic RBC (0-3) per hpf Urine Microscopic WBC (0-3) per hpf Ur Squamous Epith Cells (None-Few) per lpf Urine Bacteria (None-Few) per hpf Hyaline Casts (None-Few) per lpf Ur Culture Indicated? (NO) 07/12/17 07/12/17 07/12/17 Range/Units 12:19 12:40 13:06 WBC (4.3-11.1) K/mcL RBC (4.19-5.50) M/mcL Hgb (12.9-16.9) g/dL Hct (37.5-50.1) % MCV (83.0-100.0) fL MCH (28.0-33.3) pg MCHC (31.6-35.5) g/dL RDW (11.5-14.5) % Plt Count (140-400) K/mcL MPV (9.4-12.4) fL Immature Gran % (0-4) % Seg Neutrophils % % Lymphocytes % % Monocytes % % Eosinophils % % Basophils % % Neutrophils # (1.6-8.9) K/mcL Lymphocytes # (0.6-4.6) K/mcL Monocytes # (0.0-1.3) K/mcL Eosinophils # (0.0-0.6) K/mcL Basophils # (0.0-0.2) K/mcL Sodium (136-145) mEq/L Potassium (3.5-5.1) mEq/L Chloride (98-107) mEq/L Carbon Dioxide (23-29) mEq/L BUN (8-23) mg/dL Creatinine (0.70-1.30) mg/dL Est GFR ( Amer) (> 60) Est GFR (Non-Af Amer) (> 60) BUN/Creatinine Ratio (6-26) Glucose (70-105) mg/dL POC Glucose (58-89) Calculated Osmolality (280-300) Lactic Acid 1.1 (0.5-2.2) mmol/L Calcium (8.6-10.3) mg/dL Total Bilirubin (0.3-1.0) mg/dL AST (13-39) Units/L ALT (7-52) Units/L Alkaline Phosphatase (34-104) Units/L Creatine Kinase (30-223) Units/L Troponin I 0.03 (< 0.04) ng/mL Serum Total Protein (6.4-8.9) g/dL Albumin (3.5-5.7) g/dL Globulin (2.4-3.5) g/dL Albumin/Globulin Ratio (1.1-2.2) Urine Color Yellow (Yellow) Urine Clarity Clear (Clear) Urine pH 6.0 (5.0-8.0) pH Units Ur Specific [place] 1.015 (1.010-1.025) Urine Protein Trace (Neg-Trace) mg/dL Urine Glucose (UA) Normal (Normal) mg/dL Urine Ketones 15 H (Negative) mg/dL Urine Blood Negative (Negative) Urine Nitrite Negative (Negative) Urine Bilirubin Negative (Negative) Urine Urobilinogen Normal (Normal) mg/dL Ur Leukocyte Esterase Negative (Negative) Urine Microscopic RBC 0-3 (0-3) per hpf Urine Microscopic WBC 0-3 (0-3) per hpf Ur Squamous Epith Cells Many H (None-Few) per lpf Urine Bacteria None Seen (None-Few) per hpf Hyaline Casts Few (None-Few) per lpf Ur Culture Indicated? NO (NO) - Radiology Data Radiology results reviewed: Yes I reviewed the patient's radiology results. 3D Reconstruction 07/12/17 00:00 IMPRESSION: Acute traumatic comminuted bilateral nasal bone fractures with mild leftward displacement and angulation. Fracture of the bony nasal septum. Associated soft tissue swelling. D/ / 07/12/2017 13:25:20 Bernabe Tee MD / [email or web address] Interpreting Provider: Bernabe Tee MD Chest X-Ray 07/12/17 12:05 IMPRESSION: Low lung volumes. Discoid atelectasis at the right lung base. Stable mild cardiomegaly. No acute pulmonary disease. D/ / Milton Lopez MD / Milton Lopez MD Interpreting Provider: Milton Lopez MD Head CT 07/12/17 12:05 IMPRESSION: No acute intracranial abnormality. Apparent nasal fracture. D/ / Destiny Matthews MD / Destiny Matthews MD Interpreting Provider: Destiny Matthews MD Cervical Spine CT 07/12/17 12:06 IMPRESSION: No acute abnormality of the cervical spine. D/ / Efren Selby MD / Efren Selby MD Interpreting Provider: Efren Selby MD Pelvis X-Ray 07/12/17 12:06 IMPRESSION: No acute abnormality in the pelvis or bilateral hips. D/ / Missael Olson MD / Missael Olson MD Interpreting Provider: Missael Olson MD Thoracic Spine CT 07/12/17 12:11 IMPRESSION: 1. No acute thoracic spine abnormality. 2. Patchy nonspecific ground-glass opacities in the lungs. D/ / Harrison Trevino MD / Harrison Trevino MD Interpreting Provider: Harrison Trevino MD Face CT 07/12/17 12:43 IMPRESSION: Acute traumatic comminuted bilateral nasal bone fractures with mild leftward displacement and angulation. Fracture of the bony nasal septum. Associated soft tissue swelling. D/ / 07/12/2017 13:25:20 Bernabe Tee MD / [email or web address] Interpreting Provider: Bernabe Tee MD - EKG Data EKG attestation: Yes I reviewed and interpreted this EKG. EKG shows normal: sinus rhythm Rate: normal (87 bpm WI 150 QRS [address] segment elevations or depressions. Sinus tachycardia left axis) Attestation Statement - Attestation Attestation: I, Brady Mello, examined this patient and my medical decision-making was reviewed with the LICENSED MENTAL HEALTH COUNSELOR/PA/Advanced Practice Nurse/Resident Physician. I agree with the documented findings, disposition and treatment plan as described except to the extent set forth below. 81-year-old male presents to emergency department after multiple falls at home. Patient states he has been increasingly weak. Patient has obvious contusions and trauma to his nose with bilateral ecchymosis in the periorbital areas. CT of the head and neck and maxillofacial area. Negative for acute fracture or intracranial hemorrhage. Patient is influenza positive. Initial troponin negative. He will be admitted to the hospital for further care and evaluation
[2017-07-12 12:33] LABS: Basophils % 0.4 %; Eosinophils % 0.7 %; Hematocrit 37.9 % (37.5-50.1); Hemoglobin 12.9 g/dL (12.9-16.9); Immature Granulocytes % 0.7 % (0-4); Lymphocytes # 1.6 K/mcL (0.6-4.6); Lymphocytes % 28.5 %; Mean Corpuscular Hemoglobin 31.2 pg (28.0-33.3); Mean Corpuscular Volume 91.8 fL (83.0-100.0); Mean Platelet Volume 11.9 fL (9.4-12.4); Monocytes # 0.8 K/mcL (0.0-1.3); Neutrophils # 3.1 K/mcL (1.6-8.9); Platelet Count 106 K/mcL (140-400); Red Blood Count 4.13 M/mcL (4.19-5.50); Red Cell Distribution Width 14.9 % (11.5-14.5); Segmented Neutrophils % 55.7 %
[2017-07-12 12:56] LABS: Alanine Aminotransferase 38 Units/L (7-52); Albumin 3.2 g/dL (3.5-5.7); Albumin/Globulin Ratio 1.1 (1.1-2.2); Alkaline Phosphatase 109 Units/L (34-104); Aspartate Amino Transferase 62 Units/L (13-39); BUN/Creatinine Ratio 20 (6-26); Bilirubin,Total 0.7 mg/dL (0.3-1.0); Blood Urea Nitrogen 25 mg/dL (8-23); Calcium 8.3 mg/dL (8.6-10.3); Carbon Dioxide 22 mEq/L (23-29); Chloride 99 mEq/L (98-107); Creatine Kinase 74 Units/L (30-223); Globulin 2.9 g/dL (2.4-3.5); Glucose 120 mg/dL (70-105); Osmolality,Calculated 280 (280-300); Potassium 3.7 mEq/L (3.5-5.1); Sodium 132 mEq/L (136-145); Total Protein 6.1 g/dL (6.4-8.9); eGFR For African Americans > 60 (> 60); eGFR For Non-African Americans 56 (> 60)
[2017-07-12 13:22] LABS: Bilirubin,Urine Negative (Negative); Blood,Urine Negative (Negative); Clarity,Urine Clear (Clear); Color,Urine Yellow (Yellow); Glucose,Urine (UA) Normal (Normal); Ketones,Urine 15 mg/dL (Negative); Leukocyte Esterase,Urine Negative (Negative); Nitrite,Urine Negative (Negative); Protein,Urine Trace mg/dL (Neg-Trace); Specific Gravity,Urine 1.015 (1.010-1.025); Urobilinogen,Urine Normal (Normal)
[2017-07-12 13:23] LABS: Bacteria,Urine None Seen per hpf (None-Few); Hyaline Casts,Urine Few per lpf (None-Few); RBC,Urine 0-3 per hpf (0-3); Squamous Epithelial Cell,Urine Many per lpf (None-Few); WBC,Urine 0-3 per hpf (0-3)
[2017-07-12] MEDS ORDERED: Tdap (Boostrix) Vaccine 0.5 ML SYRINGE IM ONE (14:58)
--- NOTE | 2017-07-12 16:00 | Internal Med History&Physical ---
<Miky Abreu - Last Filed: 07/12/17 17:01> Date of Encounter: 07/12/17 Time of Encounter: 15:57 Assessment and Plan (1) Nasal fracture Current visit: Yes Status: Acute Patient fell at home and hit his face; Multiple falls over the last several months -Attributed his falls to weakness and poor balance; Denied having visual changes , dizziness, or syncope -Raccoon eyes on physical exam Face CT demonstrated the following: -Acute traumatic comminuted bilateral nasal bone fractures with mild leftward displacement and angulation. -Fracture of the bony nasal septum. -Associated soft tissue swelling. 3D Reconstruction demonstrated the following: -Acute traumatic comminuted bilateral nasal bone fractures with mild leftward displacement and angulation. -Fracture of the bony nasal septum. -Associated soft tissue swelling. Plan: -PTOT consult -Fall precautions -ENT followup as an outpatient Qualifiers: Encounter type: initial encounter Fracture type: closed Qualified Code(s) : S02.2XXA - Fracture of nasal bones, initial encounter for closed fracture (2) Influenza B Current visit: Yes Status: Acute Nasal swab positive for Influenza B -Patient reports having dealt with the flu on and off for the past few months -Currently denies any respiratory symptoms Plan: -Tamiflu x 5 days -Droplet precautions (3) Falls frequently Current visit: Yes Status: Acute Place in fall precautions (4) HTN (hypertension) Current visit: No Status: Acute Patient has a known history of HTN Curreltly well controlled Qualifiers: Hypertension type: essential hypertension Qualified Code(s): I10 - Essential (primary) hypertension (5) Diabetes mellitus Current visit: No Status: Chronic Patient has a known history of DM Glucose was elevated at 120. Plan: -Sliding scale insulin Qualifiers: Diabetes mellitus type: type 2 Diabetes mellitus complication status: with hyperglycemia Diabetes mellitus correction insulin use: with long term care pharmacist use Qualified Code(s): E11.65 - Type 2 diabetes mellitus with hyperglycemia; Z79.4 - superintendent terminal (current) use of insulin; Z79.4 - [facility] (current) use of insulin ; Z79.4 - superintendent terminal (current) use of insulin; Z79.4 - [facility] (current) use of insulin (6) Gait abnormality Current visit: Yes Status: Acute (7) Rheumatoid arthritis Current visit: No Status: Chronic Qualifiers: Rheumatoid arthritis location: multiple sites Rheumatoid factor presence: unspecified presence Qualified Code(s): M06.9 - Rheumatoid arthritis, unspecified Internal Medicine - H&P: HPI Chief complaint: Fall Admitted From: Home Plans for Post Hospital Care: Home History of present illness: Mr. Hernandez is an 81-year-old male with a PMH of HTN, HLD, DM, CAD s/p stents, presents w/ frequent falls over the last several weeks, increased gait instability and difficulty walking. Has fallen twice the last 3 days. He is taking ASA and Plavix. He states he has been more confused somewhat as well. Normally takes care of his demented . Patient has some bruising to his face. He initially complained of nose pain, mild headache, neck pain, upper back pain rated 5/10; aching in quality. Denied having any CP, SOB, or abdominal pain. Denied unilateral weakness. Patient had no facial droop or slurred speech. Upon arrival, patients heart rate was 95 and BP was 104/89. All other vital signs were within normal limits. Patient was found to be positive for influenza B. CXR, Cervical Spine CT, Pelvis X-Ray, and thoracic spine CT showed no acute process. Head CT showed no acute intracranial abnormality with an apparent nasal fracture. Face CT demonstrated the following: Acute traumatic comminuted bilateral nasal bone fractures with mild leftward displacement and angulation. Fracture of the bony nasal septum. Associated soft tissue swelling. 3D Reconstruction demonstrated the following: Acute traumatic comminuted bilateral nasal bone fractures with mild leftward displacement and angulation. Fracture of the bony nasal septum. Associated soft tissue swelling. Patient was seen and examined at bedside this afternoon. He is accompanied by his family. Reports feeling well. Denies having any pain. States that he fell due to weakness and instability, which has been a problem for him for the last 3 months. Denies syncope, dizziness, or visual changes during his falls. He has no complaints at this time. Past Med Surg Social Fam HX - Past Medical History Medical history: diabetes, hypertension, RA Psychiatric history: no psych history - Past Surgical History Surgical History: angioplasty/stent, cholecystectomy - Social History Smoking Status: Former smoker Smokeless Tobacco Status: No Alcohol use: occasionally Drug use: none - Family History Father Living Status: Hx Family Neuromuscular Disorders: Yes (strokes) Internal Medicine - H&P: Meds Insulin Glargine,Hum.rec.anlog [Lantus Solostar] 30 unit SQ HS 05/09/17 [History ] Insulin LISPRO [HumaLOG] 10 units SQ TIDWM 05/09/17 [History] Omeprazole [PriLOSEC] 40 mg PO DAILY 05/09/17 [History] predniSONE [PredniSONE] 10 mg PO DAILY 05/09/17 [History] levoFLOXacin [Levaquin] 500 mg PO DAILY 07/12/17 [History] 3 Allergy/AdvReac Type Severity Reaction Status Date / Time No Known Drug Allergies Allergy See Verified 07/12/17 14:12 Comments All Systems PM: A 10-system review of systems was performed and is negative for pertinent findings except as documented above in the HPI. - Constitutional Constitutional: falls, weakness, no chills, no fever(s), no night sweats - EENT Eyes: no change in vision, no discharge, no pain, no photophobia Ears: no ear discharge, no ear pain, no tinnitus Nose, mouth and throat: no dysphagia, no nasal discharge, no neck pain, no sore throat - Cardiovascular Cardiovascular ROS IM: no chest pain, no diaphoresis, no dyspnea, no lightheadedness, no palpitations, no syncope - Respiratory Respiratory: no cough, no dyspnea, no wheezing, no excessive phlegm production - Gastrointestinal Gastrointestinal: no abdominal pain, no diarrhea, no hematemesis, no hematochezia, no melena, no nausea, no vomiting - Musculoskeletal Musculoskeletal ROS IM: no numbness, no tingling - Integumentary Integumentary IM: no rash, no unusual bruising - Neurological Neurological ROS: abnormal gait, disequilibrium, frequent falls, weakness, no confusion, no convulsions, no focal weakness, no numbness, no tingling, no tremor(s) - Hematologic/Lymphatic Hematologic/Lymphatic: no easy bruising - Constitutional Vitals: Temp Pulse Resp BP Pulse Ox 98.0 F 91 16 110/91 95 07/12/17 11:50 07/12/17 14:54 07/12/17 14:54 07/12/17 14:54 07/12/17 14:54 General appearance: Present: A&O X 3 - Head Head exam: Present: normocephalic Additional comments: Bruising around L eye and on nasal bridge - Eye Eye exam: Present: periorbital swelling, PERRL, conjuntiva pink, sclera anicteric Pupils: Present: PERRL - ENT Additional comments: Raccoon eyes; facial bruising; nasal septum deviated to the L - Neck Neck exam general surgery: Present: supple, trachea midline. Absent: lymphadenopathy - Respiratory Respiratory exam: Present: CTAB. Absent: accessory muscle use, rales, rhonchi, wheezes - Cardiovascular Cardiovascular exam: Present: RRR, +S1, +S2. Absent: diastolic murmur, gallop, rubs, systolic murmur - GI/Abdominal GI/Abdominal exam: Present: normal bowel sounds, soft, no peritoneal signs. Absent: distended, tenderness - Extremities Exam Extremities exam: Present: warm, radial pulses palpable and symmetrical. Absent : calf tenderness, cyanotic, pedal edema - Neurological Exam Neurological exam: Present: CN II-XII intact, oriented X3, no focal deficits. Absent: pronater drift, facial droop, speech deficit - Skin Skin exam: Present: dry, intact Internal Med - H&P Results - Labs CBC & Chem 7: 07/12/17 12:19 07/12/17 12:19 Labs: Short CBC 07/12/17 Range/Units 12:19 WBC 5.6 (4.3-11.1) K/mcL Hgb 12.9 (12.9-16.9) g/dL Hct 37.9 (37.5-50.1) % Plt Count 106 L (140-400) K/mcL Neutrophils # 3.1 (1.6-8.9) K/mcL BMP 07/12/17 12:19 Sodium 132 L Potassium 3.7 Chloride 99 Carbon Dioxide 22 L BUN 25 H Creatinine 1.24 Glucose 120 H Calcium 8.3 L Cardiac Enzymes 07/12/17 Range/Units 12:19 Troponin I 0.03 (< 0.04) ng/mL Liver Function 07/12/17 Range/Units 12:19 Total Bilirubin 0.7 (0.3-1.0) mg/dL AST 62 H (13-39) Units/L ALT 38 (7-52) Units/L Alkaline Phosphatase 109 H (34-104) Units/L Albumin 3.2 L (3.5-5.7) g/dL Urine 07/12/17 Range/Units 13:06 Urine Color Yellow (Yellow) Urine Clarity Clear (Clear) Urine pH 6.0 (5.0-8.0) pH Units Ur Specific [place] 1.015 (1.010-1.025) Urine Protein Trace (Neg-Trace) mg/dL Urine Glucose (UA) Normal (Normal) mg/dL - Impressions ITS Impressions 3D Reconstruction 07/12/17 00:00 IMPRESSION: Acute traumatic comminuted bilateral nasal bone fractures with mild leftward displacement and angulation. Fracture of the bony nasal septum. Associated soft tissue swelling. D/ / 07/12/2017 13:25:20 Bernabe Tee MD / bcarter Interpreting Provider: Bernabe Tee MD Chest X-Ray 07/12/17 12:05 IMPRESSION: Low lung volumes. Discoid atelectasis at the right lung base. Stable mild cardiomegaly. No acute pulmonary disease. D/ / Milton Lopez MD / Milton Lopez MD Interpreting Provider: Milton Lopez MD Head CT 07/12/17 12:05 IMPRESSION: No acute intracranial abnormality. Apparent nasal fracture. D/ / 07/12/2017 13:29:49 Destiny Matthews MD / mary Interpreting Provider: Destiny Matthews MD Cervical Spine CT 07/12/17 12:06 IMPRESSION: No acute abnormality of the cervical spine. D/ / Efren Selby MD / Efren Selby MD Interpreting Provider: Efren Selby MD Pelvis X-Ray 07/12/17 12:06 IMPRESSION: No acute abnormality in the pelvis or bilateral hips. D/ / Missael Olson MD / Missael Olson MD Interpreting Provider: Missael Olson MD Thoracic Spine CT 07/12/17 12:11 IMPRESSION: 1. No acute thoracic spine abnormality. 2. Patchy nonspecific ground-glass opacities in the lungs. D/ / Harrison Trevino MD / Harrison Trevino MD Interpreting Provider: Harrison Trevino MD Face CT 07/12/17 12:43 IMPRESSION: Acute traumatic comminuted bilateral nasal bone fractures with mild leftward displacement and angulation. Fracture of the bony nasal septum. Associated soft tissue swelling. D/ / 07/12/2017 13:25:20 Bernabe Tee MD / idalmis Interpreting Provider: Bernabe Tee MD <Carroll Francois - Last Filed: 07/12/17 19:38> Date of Encounter: 07/12/17 Internal Medicine - H&P: HPI History of present illness: Mr. Hernandez is a 81 year old male Past Med Surg Social Fam HX - Family History Father Living Status: Age at : 76 Cause of : cardiac Hx Family Neuromuscular Disorders: Yes (strokes) Mother Living Status: Age at : 101 Cause of : pneumonia All Systems PM: A 10-system review of systems was performed and is negative for pertinent findings except as documented above in the HPI. - Constitutional Vitals: Temp Pulse Resp BP Pulse Ox 98.0 F 83 16 83/52 90 07/12/17 19:01 07/12/17 19:01 07/12/17 19:01 07/12/17 19:01 07/12/17 19:01 Internal Med - H&P Results - Labs CBC & Chem 7: 07/12/17 12:19 07/12/17 12:19 - Attending Attestation I had a [id number] diagnostic evaluation of this patient and my medical decision-making was reviewed with the Resident Physician Dr Abreu. I agree with the documented findings, disposition and treatment plan as described except to the extent set forth below. Patient status post fall with nasal injury. Currently in no acute distress awake alert oriented. Pupils are equal round reactive to light. Heart is regular. Lungs are clear. We will treat him with Tamiflu for influenza. Full precautions. PT OT. Social work consult. Carroll Francois MD
[2017-07-12] MEDS ORDERED: Naloxone 0.4 MG/ML INJ IVP PRN (16:13)
[2017-07-12] MEDS ORDERED: D5% in Water 1,000 ML IVC PRN (16:15)
[2017-07-12] MEDS ORDERED: Dextrose Gel 15 GM/37.5 ML TUBE PO PRN ×2 (16:15)
[2017-07-12] MEDS ORDERED: *HR* Dextrose 50 % in Water (Syg) 50 ML SYRINGE IVP PRN (16:15)
[2017-07-12] MEDS: Insulin LISPRO 300 UNITS/3 ML VIAL SQ SCH (18:24)
--- NOTE | 2017-07-13 10:11 | Electrocardiograph Report ---
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
[2017-07-13] MEDS: Insulin LISPRO 300 UNITS/3 ML VIAL SQ SCH ×3 (10:48→16:25)
--- NOTE | 2017-07-13 14:15 | Internal Med Progress Note ---
Date of Encounter: 07/13/17 Time of Encounter: 14:13 - Assessment and plan (1) Nasal fracture Current Visit: Yes Status: Acute Assessment and plan: Patient fell at home and hit his face; Multiple falls over the last several months -Attributed his falls to weakness and poor balance; Denied having visual changes , dizziness, or syncope -Raccoon eyes on physical exam Face CT demonstrated the following: -Acute traumatic comminuted bilateral nasal bone fractures with mild leftward displacement and angulation. -Fracture of the bony nasal septum. -Associated soft tissue swelling. 3D Reconstruction demonstrated the following: -Acute traumatic comminuted bilateral nasal bone fractures with mild leftward displacement and angulation. -Fracture of the bony nasal septum. -Associated soft tissue swelling. Plan: -PTOT consult -Fall precautions -ENT followup as an outpatient Qualifiers: Encounter type: initial encounter Fracture type: closed Qualified Code(s) : S02.2XXA - Fracture of nasal bones, initial encounter for closed fracture (2) Gait abnormality Current Visit: Yes Status: Acute Assessment and plan: with frequent falls. Family reports associated slurred speech and express concern for possible CVA. Neurologically intact. Head CT with nasal fx, otherwise nonacute. Brain MRI pending. (3) Influenza B Current Visit: Yes Status: Acute Assessment and plan: rapid flu swab positive for influenza B. Cont Tamiflu. (4) Rheumatoid arthritis Current Visit: No Status: Chronic Assessment and plan: per hx. Cont home steroids Qualifiers: Rheumatoid arthritis location: multiple sites Rheumatoid factor presence: unspecified presence Qualified Code(s): M06.9 - Rheumatoid arthritis, unspecified (5) DVT prophylaxis Current Visit: No Status: Acute Assessment and plan: heparin - Subjective Interval history: Seen and examined at bedside. Patient is new to me, information obtained from chart review and patient report. She is sore all over but overall feels well. No chest pain or shortness of breath. He has been having increasing falls at home, legs feel wobbly and give out. At bedside and reports slurred speech yesterday. They expressed concern for CVA. Slurred speech, facial droop appears seizures on my exam. - Constitutional Vitals: Temp Pulse Resp BP Pulse Ox 98.6 F 77 15 109/70 88 07/13/17 10:45 07/13/17 10:45 07/13/17 10:45 07/13/17 10:45 07/13/17 10:45 General appearance: Present: A&O X 3 - Head Head exam: Present: atraumatic, normocephalic - Eye Eye exam: Present: PERRL, conjuntiva pink, sclera anicteric Pupils: Present: PERRL - Neck Neck exam general surgery: Present: supple, trachea midline. Absent: lymphadenopathy - Respiratory Respiratory exam: Present: CTAB. Absent: accessory muscle use, rales, rhonchi, wheezes - Cardiovascular Cardiovascular exam: Present: RRR, +S1, +S2. Absent: diastolic murmur, gallop, rubs, systolic murmur - GI/Abdominal GI/Abdominal exam: Present: normal bowel sounds, soft, no peritoneal signs. Absent: distended, tenderness - Extremities Exam Extremities exam: Present: warm, radial pulses palpable and symmetrical. Absent : calf tenderness, cyanotic, pedal edema - Neurological Exam Neurological exam: Present: CN II-XII intact, oriented X3, no focal deficits. Absent: pronater drift, facial droop, speech deficit - Skin Skin exam: Present: dry, intact - Expanded Skin Exam Full body front and back image: 1 - bruising to bilateral eyes Internal Medicine: Result - Labs CBC & Chem 7: 07/12/17 12:19 07/12/17 12:19 - VTE Documentation of Mechanical Device: Intermittent pneumatic compression device Consult Discharge Plan - Plan Referrals: NONE,PCP [Primary Care Provider] -
[2017-07-13] MEDS: *HR* Heparin 5,000 UNIT/ML VIAL SQ SCH (21:22)
[2017-07-14] MEDS ORDERED: Acetaminophen 325 MG TABLET PO PRN (01:37)
[2017-07-14] MEDS: *HR* Heparin 5,000 UNIT/ML VIAL SQ SCH ×2 (05:12→18:25)
[2017-07-14 07:31] LABS: BUN/Creatinine Ratio 17 (6-26); Blood Urea Nitrogen 17 mg/dL (8-23); Calcium 8.2 mg/dL (8.6-10.3); Carbon Dioxide 27 mEq/L (23-29); Chloride 104 mEq/L (98-107); Glucose 145 mg/dL (70-105); Osmolality,Calculated 288 (280-300); Potassium 3.6 mEq/L (3.5-5.1); Sodium 137 mEq/L (136-145); eGFR For African Americans > 60 (> 60); eGFR For Non-African Americans > 60 (> 60)
[2017-07-14] MEDS: Insulin LISPRO 300 UNITS/3 ML VIAL SQ SCH ×3 (09:10→18:26)
[2017-07-14] MEDS: predniSONE 10 MG TABLET PO SCH (09:10)
--- NOTE | 2017-07-14 16:32 | Internal Med Progress Note ---
Date of Encounter: 07/14/17 Time of Encounter: 14:00 - Assessment and plan (1) Nasal fracture Current Visit: Yes Status: Acute Assessment and plan: Patient fell at home and hit his face; Multiple falls over the last several months -Attributed his falls to weakness and poor balance; Denied having visual changes , dizziness, or syncope -Raccoon eyes on physical exam Face CT demonstrated the following: -Acute traumatic comminuted bilateral nasal bone fractures with mild leftward displacement and angulation. -Fracture of the bony nasal septum. -Associated soft tissue swelling. 3D Reconstruction demonstrated the following: -Acute traumatic comminuted bilateral nasal bone fractures with mild leftward displacement and angulation. -Fracture of the bony nasal septum. -Associated soft tissue swelling. Plan: -PTOT consult -Fall precautions -ENT followup as an outpatient Qualifiers: Encounter type: initial encounter Fracture type: closed Qualified Code(s) : S02.2XXA - Fracture of nasal bones, initial encounter for closed fracture (2) Gait abnormality Current Visit: Yes Status: Acute Assessment and plan: with frequent falls. Family reports associated slurred speech and express concern for possible CVA. Neurologically intact. Head CT with nasal fx, otherwise nonacute. Brain negative for acute infarct. PT/OT recommending SNF. (3) Near syncope Current Visit: Yes Status: Acute Assessment and plan: Patient reports lightheadedness with sensation of feeling as if he is going to fall. Head CT nonacute. Brain MRI nonacute. Bilateral carotid Dopplers, echo and orthostatics pending. (4) Influenza B Current Visit: Yes Status: Acute Assessment and plan: rapid flu swab positive for influenza B. Cont Tamiflu. (5) Rheumatoid arthritis Current Visit: No Status: Chronic Assessment and plan: per hx. Cont home steroids Qualifiers: Rheumatoid arthritis location: multiple sites Rheumatoid factor presence: unspecified presence Qualified Code(s): M06.9 - Rheumatoid arthritis, unspecified (6) Thrombocytopenia Current Visit: Yes Status: Acute Assessment and plan: PLTs 106; chart review shows transient thrombocytopenia in the 130s. No obvious bleeding. Stop prophylactic heparin. Repeat CBC in a.m. (7) DVT prophylaxis Current Visit: No Status: Acute Assessment and plan: SCD - Subjective Interval history: Seen and examined at bedside; still with complaint of feeling as if legs were wobbly. Describes sensation as slight numbness. Still has lightheadedness with standing. No CP or SOB - Constitutional Vitals: Temp Pulse Resp BP Pulse Ox 97.6 F 90 14 106/71 90 07/14/17 15:45 07/14/17 15:45 07/14/17 15:45 07/14/17 15:45 07/14/17 15:45 General appearance: Present: A&O X 3 - Head Head exam: Present: atraumatic, normocephalic - Eye Eye exam: Present: PERRL, conjuntiva pink, sclera anicteric Pupils: Present: PERRL Additional comments: Raccoon eyes - Neck Neck exam general surgery: Present: supple, trachea midline. Absent: lymphadenopathy - Respiratory Respiratory exam: Present: CTAB. Absent: accessory muscle use, rales, rhonchi, wheezes - Cardiovascular Cardiovascular exam: Present: RRR, +S1, +S2. Absent: diastolic murmur, gallop, rubs, systolic murmur - GI/Abdominal GI/Abdominal exam: Present: normal bowel sounds, soft, no peritoneal signs. Absent: distended, tenderness - Extremities Exam Extremities exam: Present: warm, radial pulses palpable and symmetrical. Absent : calf tenderness, cyanotic, pedal edema - Neurological Exam Neurological exam: Present: CN II-XII intact, oriented X3, no focal deficits. Absent: pronater drift, facial droop, speech deficit - Skin Skin exam: Present: dry, intact Internal Medicine: Result - Labs CBC & Chem 7: 07/12/17 12:19 07/14/17 06:45 Labs: BMP 07/14/17 06:45 Sodium 137 Potassium 3.6 Chloride 104 Carbon Dioxide 27 BUN 17 Creatinine 1.02 Glucose 145 H Calcium 8.2 L - Impressions Impressions Brain MRI 07/13/17 14:11 IMPRESSION: 1. No acute intracranial abnormality. 2. Stable senescent parenchymal volume loss with mild chronic white matter microvascular ischemic changes. D/ / Manjit Huitron / Manjit Huitron Interpreting Provider: Manjit Huitron Echocardiogram 07/14/17 08:23 Impressions: Technically challenging study with suboptimal image quality. Unable to estimate LV systolic function. Recommend repeat Limited study with Definity. Mild left ventricular diastolic dysfunction. Probably atypical septal motion. Normal right ventricular structure and function. Mild aortic regurgitation. No pulmonary hypertension. Ascending aorta is not well visualized. Left Ventricular Wall Motion: Rest Echo Findings The mid anterior septal and basal anterior septal pandya were hypokinetic. The apical septal and mid inferior septal pandya were dyskinetic. The apex, apical inferior, mid inferior, basal inferior, apical anterior, mid anterior, basal anterior, basal inferior septal, apical lateral, mid anterior lateral and basal anterior lateral pandya were not visualized. All other wall segments showed normal motion. Findings: Study Quality * Technically challenging study with suboptimal image quality. ECG Findings * Normal sinus rhythm. Left Ventricle * Mild left ventricular diastolic dysfunction. * Normal LV size and wall thickness. * Probably atypical septal motion. Right Ventricle * Normal right ventricular structure and function. Left Atrium * Normal left atrial size. Right Atrium * Normal right atrial size. Aortic Valve * Aortic valve not well visualized. * Mild aortic regurgitation. * No aortic stenosis. Mitral Valve * No mitral regurgitation. * Mitral valve not well visualized. * No mitral stenosis. Tricuspid Valve * Tricuspid valve not well visualized. * Trace tricuspid regurgitation. * Estimated RA pressure is 3 mmHg. * Estimated RVSP is 15 mmHg. * No pulmonary hypertension. Pulmonic Valve * Pulmonic valve is not well visualized. * No pulmonic stenosis. * No pulmonic regurgitation. Pulmonary Artery * Pulmonary artery not well visualized. Aorta * Normally sized aortic root. * Ascending aorta is not well visualized. Pericardium * There is no pericardial effusion present. Interatrial Septum * Interatrial septum not well evaluated. IVC * Normal IVC dimensions and inspiratory collapse. - VTE Documentation of Mechanical Device: Intermittent pneumatic compression device Consult Discharge Plan - Plan Referrals: Jaky Cantu MD [Non-Partnered Physician] - 07/20/17 10:00 am
[2017-07-14] MEDS: Oseltamivir Phosphate 30 MG CAPSULE PO SCH (20:24)
[2017-07-15 04:35] LABS: Mean Corpuscular Hemoglobin 30.7 pg (28.0-33.3); Red Cell Distribution Width 14.2 % (11.5-14.5)
[2017-07-15 04:37] LABS: Hematocrit 36.1 % (37.5-50.1); Hemoglobin 12.3 g/dL (12.9-16.9); Immature Platelets 10.1 % (1.1-6.1); Mean Corpuscular HGB Conc 34.1 g/dL (31.6-35.5); Mean Platelet Volume 11.9 fL (9.4-12.4); Red Blood Count 4.01 M/mcL (4.19-5.50)
[2017-07-15] MEDS: Insulin LISPRO 300 UNITS/3 ML VIAL SQ SCH ×2 (09:22→12:13)
[2017-07-15] MEDS: predniSONE 10 MG TABLET PO SCH (09:23)
[2017-07-15] MEDS: Oseltamivir Phosphate 30 MG CAPSULE PO SCH (09:24)
[2017-07-15 11:12] VITALS: BP 107/69
--- NOTE | 2017-07-15 12:35 | Discharge Summary ---
- NOTES TO OUTPATIENT PROVIDER Notes to Outpatient Provider: Recommend repeat CBC with in 1 week to evaluate for cytopenia. Platelets dropped to 94 while inpatient. Patient refused to stay for further workup. Will need repeat echocardiogram with [facility] as patient declined to have this inpatient. Orders not resulted at time of discharge: Pending orders 07/15/17 07:55 EV limited echo w enhance Routine Date of Encounter: 07/15/17 Time of Encounter: 12:30 - Discharge Diagnosis (1) Nasal fracture Priority: Primary Status: Acute Comments: fell at home and hit face; Multiple falls over the last several months. Attributed his falls to weakness and poor balance; Denied having visual changes , dizziness, or syncope. Face CT showed acute traumatic comminuted bilateral nasal bone fractures with mild leftward displacement and angulation, fracture of the bony nasal septum with associated soft tissue swelling. 3D Reconstruction demonstrated similar findings. With raccoon eyes on exam otherwise no acute/obvious trauma. Follow-up with ENT within 1 week. Qualifiers: Encounter type: initial encounter Fracture type: closed Qualified Code(s) : S02.2XXA - Fracture of nasal bones, initial encounter for closed fracture (2) Gait abnormality Priority: Primary Status: Acute Comments: with frequent falls. Evaluated by PT/OT who recommended SNF/acute inpatient rehabilitation however patient adamantly refusing. I personally discussed with patient multiple times and he continued to decline. He is also refusing HHC. He is at high risk for readmission due to need for further PT/OT services, advanced age and comorbidities. (3) Near syncope Priority: Primary Status: Acute Comments: Patient reported sensation of lightheadedness/dizziness with subsequent falls. Head CT nonacute. Brain MRI without acute infarct. Bilateral carotid Dopplers with minimal plaque. TTE E unable to estimate LV, mild diastolic dysfunction, probable atypical septal motion and mild aortic regurgitation and ascending aorta that is not well visualized. A repeat limited echo with [facility] was recommended however patient declined. Recommend follow-up with PCP within one week. (4) Influenza B Priority: Primary Status: Acute Comments: rapid flu swab positive for influenza B. Cont Tamiflu for a total course of 5 days. (5) Rheumatoid arthritis Priority: Secondary Status: Chronic Comments: per hx. Cont home steroids Qualifiers: Rheumatoid arthritis location: multiple sites Rheumatoid factor presence: unspecified presence Qualified Code(s): M06.9 - Rheumatoid arthritis, unspecified (6) Thrombocytopenia Priority: Primary Status: Acute Comments: PLTs dropped to 94; no obvious bleeding. Etiology unknown. Patient refused to stay for further workup and treatment. Recommend follow-up with PCP within one week. (7) Diabetes mellitus Priority: Secondary Status: Chronic Comments: per hx. continue home diabetes medication regimen. Qualifiers: Diabetes mellitus type: type 2 Diabetes mellitus complication status: with hyperglycemia Diabetes mellitus termite control technician insulin use: with usp use Qualified Code(s): E11.65 - Type 2 diabetes mellitus with hyperglycemia; Z79.4 - termite control technician (current) use of insulin; Z79.4 - halfway (current) use of insulin ; Z79.4 - halfway (current) use of insulin; Z79.4 - termite control technician (current) use of insulin Hospital course: Mr. Hernandez is an 81-year-old male with past medical history diabetes, rheumatoid arthritis and GERD who presented to [facility] on 07/12/2017 after a fall at home. He was found to have a nasal fracture. He was evaluated by PT OT who recommended SNF/acute inpatient rehabilitation however he adamantly refused. He also refused home health care. He was discharged home in stable condition with outpatient follow-up. Please see assessment and plan for further details. - Time Spent with Patient Total time spent providing and/or coordinating discharge services: - Discharge Medications Prescriptions: Oseltamivir Phosphate [Tamiflu] 30 mg PO BID #7 capsule Home Medications: Insulin Glargine,Hum.rec.anlog [Lantus Solostar] 30 unit SQ HS 05/09/17 [History ] Insulin LISPRO [HumaLOG] 10 units SQ TIDWM 05/09/17 [History] Omeprazole [PriLOSEC] 40 mg PO DAILY 05/09/17 [History] predniSONE [PredniSONE] 10 mg PO DAILY 05/09/17 [History] Oseltamivir Phosphate [Tamiflu] 30 mg PO BID #7 capsule 07/15/17 [Rx] Allergies/Adverse Reactions: 3 Allergy/AdvReac Type Severity Reaction Status Date / Time No Known Drug Allergies Allergy See Verified 07/12/17 14:12 Comments Date of admission: 07/12/17 16:29 Primary care physician: PCP NONE Discharging clinician: Elsa Griffin Anticipated date of discharge: 07/15/17 - Constitutional Vitals: Temp Pulse Resp BP Pulse Ox 96.0 F L 74 18 107/69 94 07/15/17 11:12 07/15/17 11:12 07/15/17 11:12 07/15/17 11:12 07/15/17 11:12 General appearance: Present: A&O X 3 - Head Head exam: Present: atraumatic, normocephalic - Eye Eye exam: Present: PERRL, conjuntiva pink, sclera anicteric Pupils: Present: PERRL Additional comments: Raccoon eyes - Neck Neck exam general surgery: Present: supple, trachea midline. Absent: lymphadenopathy - Respiratory Respiratory exam: Present: CTAB. Absent: accessory muscle use, rales, rhonchi, wheezes - Cardiovascular Cardiovascular exam: Present: RRR, +S1, +S2. Absent: diastolic murmur, gallop, rubs, systolic murmur - GI/Abdominal GI/Abdominal exam: Present: normal bowel sounds, soft, no peritoneal signs. Absent: distended, tenderness - Extremities Exam Extremities exam: Present: warm, radial pulses palpable and symmetrical. Absent : calf tenderness, cyanotic, pedal edema - Neurological Exam Neurological exam: Present: CN II-XII intact, oriented X3, no focal deficits. Absent: pronater drift, facial droop, speech deficit - Skin Skin exam: Present: dry, intact - Patient Status Disposition: Home, Self-Care Condition: Fair Functional capacity at discharge: uses cane/walker Overall status at discharge: patient is not back to baseline - Discharge Instructions Instructions: Influenza (DC), Oseltamivir (By mouth), Fall Prevention (DC), Fall Prevention for Older Adults (GEN) Follow Up With: Jaky Cantu MD [Non-Partnered Physician] - 07/20/17 10:00 am Additional Instructions: Please call your family doctor and make a follow-up appointment within 1 week. It is recommended that you have a repeat complete blood count as well as a limited echocardiogram with [facility]. Return to the ER if you continue to have falls or lightheadedness/dizziness. - Diet and Activity Activity: increase activity as tolerated Diet: diabetic diet - VTE Documentation of Mechanical Device: Intermittent pneumatic compression device
== END 2017-07-15 14:01 | disposition home or self-care (01) ==
LOC: EMEROO 11:47 → 3BNU 11:47
PROVIDERS: ADMIT Registered Nurse; ATTEND Registered Nurse